=== PATIENT | male | born 1985 | race African-American/Black ===

== ENCOUNTER 2017-12-07 10:43 | Emergency (ER) | payer SELFPAY ==
[~2017-12-07] VITALS: Ht 188 cm; Wt 90.7 kg
--- OUTSIDE RECORDS SUMMARY | 2017-12-07 10:45 | XMS REPORT | Clinical Summary ---
Author Author TER[facility] Address Unknown Phone Unavailable Care Team Providers Care Funeral Driver Name Role Phone PCP Unavailable Allergies No Known Allergies Current Medications No known medications Active Problems Not on file Social History Tobacco Use Types Packs/Day Years Used Date Heavy Tobacco Smoker Tobacco Cessation: Ready to Quit: No Alcohol Use Drinks/Week oz/Week Comments No Sex Assigned at Date Recorded Not on file Last Filed Vital Signs Not on file Plan of Treatment Not on file Results Not on fileafter 12/06/2016
[2017-12-07] MEDS ORDERED: IPRATROPIUM BROMIDE 0.02% 2.5 ML NEB NEB STA (10:46)
[2017-12-07] MEDS ORDERED: ALBUTEROL SULF 0.083% NEB SOLN 3 ML NEB NEB STA (10:46)
[2017-12-07] MEDS ORDERED: DEXAMETHASONE SOD PHOS 10 MG/1 ML VIAL INJ ONE (11:00)
[2017-12-07] MEDS ORDERED: ACETAMINOPHEN/CODEINE ELIX 120-12 MG/5 ML UDC PO ONE (11:00)
--- NOTE | 2017-12-07 12:09 | Diagnostic Imaging Report ---
EXAMINATION: CHEST 2 VIEWS INDICATION: ^ORDER PLACED BY ^[id number] ^[id number] ^Y COMPARISON: None FINDINGS: PA and lateral views TUBES and LINES: None. LUNGS: Lungs are well inflated. Bilateral hilar peribronchial wall thickening with increased interstitial markings in both medial lower lobes. No lobar consolidations. No pulmonary edema. PLEURA: No pleural effusion or pneumothorax. HEART AND MEDIASTINUM: The cardiomediastinal silhouette is unremarkable. BONES AND SOFT TISSUES: No acute osseous lesion. Soft tissues are unremarkable. UPPER ABDOMEN: No free air under the diaphragm. IMPRESSION: Radiographic findings suggestive of bronchitis. Recommend follow-up chest radiograph in 4-6 weeks. Signed by: Dr. Marlen Mena M.D. on 12/07/2017 12:06 PM
== END 2017-12-07 13:36 | disposition home or self-care (01) ==
LOC: ER 10:43
DX: R50.9 Fever, unspecified (principal); R05 Cough; J20.9 Acute bronchitis, unspecified
CPT/HCPCS: 71046; 94640; 99283; J1100